=== PATIENT | female | born 1975 | race Asian ===

== ENCOUNTER 2021-04-19 08:17 | Emergency (ER) | payer OTHER ==
[2021-04-19 08:26] VITALS: BP 117/73; PULSE 80; TEMP 98.3; BMI 20.7
== END 2021-04-19 09:25 | disposition home or self-care (01) ==
LOC: FER 08:17
DX: S92.351A Displaced fracture of fifth metatarsal bone, right foot, initial encounter for closed fracture (principal); X50.0XXA Overexertion from strenuous movement or load, initial encounter
CPT/HCPCS: 73610-TC-RT-FY; 73630-TC-RT-FY; 99283-25